=== PATIENT | female | born 1960 | race Caucasian/White ===

== ENCOUNTER → 2017-09-05 | Outpatient (CLI) | payer BC, OTHER | LOC: OD 15:41 | PROVIDERS: ATTEND Family Medicine | DX: Z53.9 Procedure and treatment not carried out, unspecified reason (principal) ==

== ENCOUNTER → 2017-09-07 | Outpatient (CLI) | payer BC, OTHER | LOC: OD 15:24 | PROVIDERS: ATTEND Family Medicine | DX: M54.5 Low back pain (principal) | CPT/HCPCS: 36415; 86431 ==

== ENCOUNTER → 2018-01-22 | Outpatient (CLI) | payer BC, OTHER ==
--- NOTE | 2018-01-23 17:38 | WOMENS IMAGING REPORT ---
EXAM DESCRIPTION: BILAT SCREENING MAMMO W/CAD COMPLETED DATE/TIME: 01/23/2018 9:38 am REASON FOR STUDY: ROUTINE SCREENING; Z12.31 Z12.31 ENCNTR SCREEN MAMMOGRAM FOR MALIGNANT NEOPLASM O F GABRIEL COMPARISON: 08/28/2016 TECHNIQUE: Standard craniocaudal and mediolateral oblique views of each breast recorded using AMResortsa l acquisition. LIMITATIONS: None. FINDINGS: No masses, calcifications or architectural distortion. No areas of suspicion. Read with the assistance of CAD. .[facility] - R2 Cenova Version 1.3 .[facility] - R2 Cenova Version 1.3 .[facility] - R2 Cenova Version 2.4 .[facility] [place] - R2 Cenova Version 2.4 .[facility] - R2 Track Moving Machine Operator Version 9.2 IMPRESSION: NORMAL MAMMOGRAM. BIRADS 1. BREAST DENSITY: d. The breasts are extremely dense, which lowers the sensitivity of mammography. BIRAD: 1 NEGATIVE RECOMMENDATION: ROUTINE SCREENING Please continue yearly bilateral screening in December or January 2019. Please consider bilateral screening tomosynthesis, given extremely dense fibroglandular tissue bilate rally COMMENT: The patient has been notified of the results by letter per SA requirements. Additional no tification policies are in place for contacting patient with suspicious or incomplete findings. Quality ID #[id number]: The [employer] recommends an annual screening mammogram for women aged 40 years or over. This facility utilizes a reminder system to ensure that all patients receive reminder letters, and/or direct phone calls for appointments. This includes reminders for routine scr eening mammograms, diagnostic mammograms, or other Breast Imaging Interventions when appropriate. Th is patient will be placed in the appropriate reminder system. The [employer] (ACR) has developed recommendations for screening MRI of the breast s in certain patient populations, to be used in conjunction with mammography. Breast MRI surveillanc e may be appropriate for women with more than 20% lifetime risk of developing breast cancer as deter mined by genetic testing, significant family history of the disease, or history of mantle radiation f or Hodgkins Disease. ACR Practice Guidelines 2008. TECHNICAL DOCUMENTATION: FINDING NUMBER: (1) ASSESSMENT: (1) JOB ID: [id number] [employer]- All Rights Reserved Reading location - IP/workstation name: [facility]
== END ==
LOC: WI 15:24
PROVIDERS: ATTEND Family Medicine
DX: Z12.31 Encounter for screening mammogram for malignant neoplasm of breast (principal)
CPT/HCPCS: 77067

== ENCOUNTER 2018-11-20 18:51 | Emergency (ER) | payer BC, OTHER ==
[2018-11-20] MEDS ORDERED: ACETAMINOPHEN 325 MG TABLET PO ONE (20:30)
[2018-11-20] MEDS ORDERED: HYDROMORPHONE HCL INJ/PF 2 MG/ML AMPULE IV ONE ×2 (21:23→22:52)
[2018-11-20] MEDS ORDERED: ONDANSETRON HCL INJ/PF 4 MG/2 ML SDV IV ONE (21:23)
--- NOTE | 2018-11-20 22:07 | RADIOLOGY REPORT (SQ) ---
EXAM DESCRIPTION: XR HIP 2 OR MORE VIEWS COMPLETED DATE/TME: 11/20/2018 21:24 CLINICAL HISTORY: 58 years, Female, fall severe pain COMPARISON: None. NUMBER OF VIEWS: 2 TECHNIQUE: AP pelvis and single view right hip LIMITATIONS: None. FINDINGS: Negative for acute fracture or dislocation. Well-defined lucency in the right femoral neck region may reflect benign bone cyst. Soft tissues are unremarkable. IMPRESSION: No acute osseous abnormality copyright 2010 [employer]- All Rights Reserved
--- NOTE | 2018-11-20 22:08 | RADIOLOGY REPORT (SQ) ---
EXAM DESCRIPTION: XR LUMBAR SPINE ANTEROPOSTERIOR, LATERAL, AND OBLIQUES COMPLETED DATE/TME: 11/20/2018 21:25 CLINICAL HISTORY: 58 years, Female, fall COMPARISON: None. NUMBER OF VIEWS: 5 TECHNIQUE: 5 view lumbar spine LIMITATIONS: None. FINDINGS: Osteopenia. 5 nonrib-bearing lumbar-type vertebral bodies. Height and alignment is preserved. No discrete pars defects. Facet arthropathy at the L4-5 and L5-S1 levels. Minor endplate degenerative changes. Sacroiliac joints are preserved. IMPRESSION: Osteopenia with minor degenerative change copyright 2010 [employer]- All Rights Reserved
--- NOTE | 2018-11-20 23:07 | ER Document Report ---
ED Fall - General Chief Complaint: Fall Injury Stated Complaint: FALL/BACK PAIN Time Seen by Provider: 11/20/18 21:12 Mode of Arrival: Ambulatory Information source: Patient, Relative Notes: Patient is a 58-year-old female comes emergency room with her mother who states that she was walking out of the house today to go to work she has 3 steps to go down into her garage she was in a hurry she missed 1 of the steps and fell out the door down to 3 steps landed on her which she believes to be her right hip and back. She states she is been unable to walk since that point in time because of the pain and discomfort. The mother states that she helped her up and got her into the car got her here they brought her in by wheelchair. Patient does admit to having 3 herniated disks in her back. She also has a history of lupus. The description bothering her for a long time. She has not seen a neural surgeon about these and has been being treated by her molding engineer for the discomfort and pain. She did used to see Dr. Solomon the neurologist before he retired. She denies any loss of urine or stool she denies any loss of feeling in the lower extremities. He denies any other injuri es at this time. TRAVEL OUTSIDE OF THE [place] IN LAST 30 DAYS: No - HPI Occurred: Just prior to arrival Where: Home Context: Lost balance, Fell from height Associated symptoms: Difficulty walking. denies: Lost consciousness, Dazed/confused, Seizure, Difficulty breathing, Became dizzy/fainted, Blood in stool Location of injury/pain: Back, Hip Adult Front & Back: 1 - Area pain discomfort 2 - Secondary area pain discomfort. Quality of pain: Achy, Sharp, Throbbing Severity: Moderate Pain Level: 4 - Related data Allergies/Adverse Reactions: Penicillins Allergy (Verified 10/14/15 10:47) RASH Sulfa (Sulfonamide Antibiotics) Allergy (Verified 10/14/15 10:47) RASH, ULCERS IN MOUTH Past Medical History - General Information source: Patient, Parent - Social History Smoking Status: Former Smoker Cigarette use (# per day): No Chew tobacco use (# tins/day): No Smoking Education Provided: No Frequency of alcohol use: None Drug Abuse: None Family History: Reviewed & Not Pertinent Patient has suicidal ideation: No Patient has homicidal ideation: No - Past Medical History Cardiac Medical History: Denies: Hx Coronary Artery Disease, Hx Heart Attack, Hx Hypertension Pulmonary Medical History: Reports: Hx Asthma - emphysema Denies: Hx Bronchitis, Hx COPD, Hx Pneumonia Neurological Medical History: Denies: Hx Cerebrovascular Accident, Hx Seizures Renal/ Medical History: Denies: Hx Peritoneal Dialysis Musculoskeletal Medical History: Denies Hx Arthritis - Immunizations Hx Diphtheria, Pertussis, Tetanus Vaccination: Yes Review of Systems - Review of Systems Constitutional: No symptoms reported EENT: No symptoms reported Cardiovascular: No symptoms reported Respiratory: No symptoms reported Gastrointestinal: No symptoms reported Genitourinary: No symptoms reported Female Genitourinary: No symptoms reported Musculoskeletal: See HPI, Back pain, Joint pain Skin: No symptoms reported Hematologic/Lymphatic: No symptoms reported Neurological/Psychological: No symptoms reported -: Yes All other systems reviewed and negative Physical Exam - Vital signs Vitals: Temp Pulse Resp BP Pulse Ox 98.9 F 70 16 100/62 98 11/20/18 19:20 11/20/18 19:20 11/20/18 19:20 11/20/18 19:20 11/20/18 19:20 Interpretation: Hypotensive - Notes Notes: PHYSICAL EXAMINATION: GENERAL: Patient is a slightly anorexic appearing 58-year-old female who appears a little older than her stated age on arrival to ER. She is in no apparent distress on physical exam tonight however she is in obvious pain and discomfort. HEAD: Atraumatic, normocephalic. EYES: Pupils equal round and reactive to light, extraocular movements intact, ENT: Nares patent, oropharynx clear without exudates. Moist mucous membranes. NECK: Normal range of motion, supple without lymphadenopathy LUNGS: Breath sounds clear to auscultation bilaterally and equal. No wheezes rales or rhonchi. HEART: Regular rate and rhythm without murmurs ABDOMEN: Soft, nontender, nondistended abdomen. No guarding, no rebound. No masses appreciated. Female : deferred Musculoskeletal: Examination of patient's area of concern is her right hip and low back. Examination of her right hip and low back with visual inspection does not show any acute deformity. There is also no signs of ecchymosis or abrasions on either the hip's lateral posterior areas. There is no sign of swelling to any of the area where patient states there is discomfort and pain. There is some mild reproducible tenderness to palpation along the lateral side of the right lower lumbar area more into the deep soft tissue of the buttocks area. But again there is no sign of ecchymosis or abrasions in that area. Patient has positive straight leg raise bilaterally to only about 10 or 15 degrees without excessive discomfort and pain and crying on movement. She does display some normal DTRs when distracted. And vascular examination of the lower extremities is intact with dorsalis pedis being 2+ good cap refill in the nailbeds of the toes bilaterally. She has range of motion of the ankles and feet. Without any deficits. Unable to passively move the right hip with out having discomfort and pain. There is no sign of urine leakage or stool leakage. NEUROLOGICAL: Normal speech, Normal sensory, motor exams PSYCH: Normal mood, normal affect. SKIN: Warm, Dry, normal turgor, no rashes or lesions noted. Course - Re-evaluation Re-evalutation: 11/20/18 23:35 Patient's course of stay in ER again here was not really uneventful. I did look patient up on the [facility] aware line. Though she does not display any type of seeking behavior for narcotic medication she is on routine diazepam from the same position on a routine basis. She did receive some hydrocodone back in August the exact strength I do not remember but she received denying the pill count for a 30-day supply. Previous to that she I believe was back in April received 270 hydrocodone pills which was a 3-month supply and since then nothing and prior to that there was nothing I could find. She does have a history of lupus so do not know whether this was a lupus flare or not it was causing the dispensing of that medication or could have been a flare of her herniated disks at the time. At this point though I do not see any acute traumatic event from a fall however I will treat her with some pain medication at this time and she can contact her molding engineer first thing in the morning for a referral to a neurosurgeon or a neurologist or orthopedist of their choice since this is a acute exacerbation of a chronic condition. I do not see that this is a emergent type of a thing. She does not display any signs of cauda equina. She has good feeling bilaterally of the lower extremities from the hips down to the toes. - Vital Signs Vital signs: Temp Pulse Resp BP Pulse Ox 98.9 F 70 16 100/62 98 11/20/18 19:20 11/20/18 19:20 11/20/18 19:20 11/20/18 19:20 11/20/18 19:20 Discharge - Discharge Clinical Impression: Right sided sciatica, Herniated intervertebral disc of lumbar spine Contusion of right hip Qualifiers: Encounter type: initial encounter Qualified Code(s): S70.01XA - Contusion of right hip, initial encounter Condition: Stable Disposition: HOME, SELF-CARE Instructions: Contusion ([facility]), Low Back Pain ([facility]), Sciatica ([facility]) Additional Instructions: LOW BACK PAIN: Three out of every four people will have an episode of disabling back pain during their lifetime. Most commonly the pain is due to straining of the muscles and ligaments in the low back. Usual treatment includes: (1) Rest on a firm surface. Avoid lying on your stomach. (2) Ice pack the painful area. After a few days, gentle heat may be used intermittently to relax the area, or ice packs can be continued. (3) Medication may be needed -- muscle relaxers and antiinflammatory medicines are commonly used. (4) As the back improves, exercises are prescribed to strengthen the back and abdominal muscles. Your doctor will advise you on the proper care for your back at each stage in your recovery. You may be better in a few days -- or healing may take several weeks. If new symptoms of a "herniated disc" (radiation of pain, numbness, or tingling down the back of the leg or weakness in the leg) occur, you should be re-examined. Further testing may be necessary. PAIN MEDICATION INJECTION: You have received an injection of a pain medication. You should experience significant pain relief within 45 minutes. If this injection was a narcotic -- it will impair your judgement, slow your reaction time and make you sleepy (as well as relieve your pain). Narcotics also can cause nausea. You should not drive, work with machinery, or perform any task requiring mental alertness until all effects of the medication are gone -- six to eight hours. Do not take any alcohol, or sedatives, and do not take any other medication without checking with your physician. ORAL NARCOTIC MEDICATION: You have been given a prescription for pain control. This medication is a narcotic. It's best taken with food, as nausea can result if taken on an empty stomach. Don't operate machinery or drive within six hours of taking this medication. Do not combine this medicine with alcohol, or with any medication which can cause sedation (such as cold tablets or sleeping pills) unless you get permission from the physician. Narcotics tend to cause constipation. If possible, drink plenty of fluids and eat a diet high in fiber and fruits. Please be aware that prescription narcotics also have the potential for abuse. People become addicted to these medications because of the general sense of wellbeing that they induce. This feeling along with a significant reduction in tension, anxiety, and aggression provides a stimulating seductive quality to these drugs. Once your pain is under control, we encourage you to discard your unused narcotics. MUSCLE RELAXERS: Muscle relaxing medications are usually prescribed for acute muscle spasm or injury to the neck and back. They are often combined with antiinflammatory pain medication for increased relief. You may stop the muscle relaxer when the pain and stiffness have improved. Start the medication again if spasms recur. Muscle relaxers may cause drowsiness, especially with the first dose. Do not operate machinery or drive while under the effects of the medication. Most muscle relaxers last up to 24 hours. Do not combine the medication with alcohol. WARM PACKS: After approximately two days, apply gentle heat (such as a heating pad or hot water bottle) for about 20 to 30 minutes about every two hours -- at least four times daily. Warmth and elevation will help you make a more rapid recovery, and will ease the pain considerably. Do not use HOT heat, and never apply heat for longer than 30 minutes. The continuous heat can invisibly damage skin and muscles -- even when no burn is seen on the surface. Damaged muscles can make you MORE sore. FOLLOW-UP CARE: If you have been referred to a physician for follow-up care, call the physicians office for an appointment as you were instructed or within the next two days. If you experience worsening or a significant change in your symptoms, notify the physician immediately or return to the Emergency Department at any time for re-evaluation. As we discussed home ice to the area 3 times a day for 30-40 minutes at a time. Allow a sheet to be at least between her skin and the ice. Use a walker for any ambulation at all. Contact your molding engineer first thing in the morning for a follow-up visit and/or a referral to a orthopedic or neurologist. Medication as directed return to ER for any concerns or problems especially if you have any loss of urine or stool without trying and/or loss of feeling or inability to walk normally with a walker. Prescriptions: Oxycodone HCl/Acetaminophen [Percocet 5-325 mg Tablet] 1 - 2 tab PO Q4H PRN #15 tablet PRN Reason: Prednisone 10 mg PO ASDIR PRN 6 Days #1 tab.ds.pk PRN Reason: Referrals: MISAEL ORTEGA MD [Primary Care Provider] - Follow up as needed LENIN MERCADO MD [ACTIVE STAFF] - Follow up as needed
[2018-11-20] MEDS ORDERED: DEXAMETHASONE SOD PHOS INJ 10 MG/1 ML VIAL IV ONE (23:45)
[2018-11-21 01:13] VITALS: BP 97/59
== END 2018-11-21 01:13 | disposition home or self-care (01) ==
LOC: ER 18:51
DX: S70.01XA Contusion of right hip, initial encounter (principal); M54.31 Sciatica, right side; M51.26 Other intervertebral disc displacement, lumbar region; M54.9 Dorsalgia, unspecified; R26.2 Difficulty in walking, not elsewhere classified; W10.8XXA Fall (on) (from) other stairs and steps, initial encounter; Y92.008 Other place in unspecified non-institutional (private) residence as the place of occurrence of the external cause; Z87.891 Personal history of nicotine dependence; J43.9 Emphysema, unspecified
CPT/HCPCS: 96376; 99283; 96374; 96375; 73502; 72110; J1170; J2405; J1100